=== PATIENT | female | born 1985 | race Caucasian/White ===

== ENCOUNTER 2019-03-02 12:51 | Emergency (ER) | payer OTHER, SELFPAY ==
--- NOTE | 2019-03-02 14:13 | RAD ---
EXAM: Chest 2 views: HISTORY: Cough and congestion COMPARISON: 08/18/2012 FINDINGS: There is a normal-sized cardiomediastinal silhouette. There is no evidence of consolidation, mass, or pleural effusion. The bones are unremarkable. IMPRESSION: No evidence of acute cardiopulmonary disease
--- NOTE | 2019-03-08 05:59 | PQF ---
[facility] POST DISCHARGE CLINICAL DOCUMENTATION IMPROVEMENT CLARIFICATION FORM l Todays Date: 03/07/2019 l Patients Name Jazmyne Villalta l l Admit Date 03/02/2019 l Disch Date 03/02/2019 Cod Maciej vibha Email: [email or web address]: [phone] To be completed by Mechanical Manufacturing Engineer: Present Clinical Indicators - Signs / Symptoms Results and Location in Medical Record [ ] Documentation of: [ ] [ ] Documentation of: [ ] [ ] Documentation of: [ ] [ ] Documentation of: [ ] [ ] Risks [ ] [ ] [ ] Treatment [ ] BRONCHITIS QUERY FOR SPECIFICTY OF ACUTE OR CHRONIC BRONCHITIS [ ] [ ] To be completed by Physician: DR. Penny DO, [place] The documentation in this patients record requires clarification to ensure coding compliance and accuracy. Check the appropriate box and include in your discharge summary. [ ] [ ] [ ] [ ] Please check this box if this does not apply to this patient [ ] Unable to determine [ ] Other diagnosis: Review the following information and exercise your independent professional judgment in responding to the clarification. Based upon the clinical findings, risk factors, and treatment, please clarify if you are treating one of the above probable or suspected diagnoses. Physician Signature: Date Time MTDD
== END 2019-03-02 14:55 | disposition home or self-care (01) ==
LOC: ERS 12:51
DX: J20.9 Acute bronchitis, unspecified (principal); F17.210 Nicotine dependence, cigarettes, uncomplicated
CPT/HCPCS: 71046

== ENCOUNTER 2019-06-06 23:47 | Emergency (ER) | payer SELFPAY | END 2019-06-07 00:39 | disposition left against medical advice (07) | LOC: ERS 23:47 | DX: Z53.21 Procedure and treatment not carried out due to patient leaving prior to being seen by health care provider (principal) ==

== ENCOUNTER 2019-08-14 23:49 | Emergency (ER) | payer SELFPAY | END 2019-08-15 00:53 | disposition home or self-care (01) | LOC: ERS 23:49 | DX: K04.7 Periapical abscess without sinus (principal); K03.81 Cracked tooth; K02.9 Dental caries, unspecified; F31.9 Bipolar disorder, unspecified; F20.9 Schizophrenia, unspecified; F41.9 Anxiety disorder, unspecified; F17.210 Nicotine dependence, cigarettes, uncomplicated | CPT/HCPCS: 99282 ==

== ENCOUNTER 2019-09-22 15:04 | Emergency (ER) | payer SELFPAY ==
[2019-09-22 16:08] LABS: Bilirubin 1+ (Negative); Blood, Urine Negative (Negative); Clarity Clear (Clear); Glucose, Urine (Dipstick) Normal (Negative); Leukocyte 250 Leu/uL (Negative); Nitrite 1+ (Negative); Protein, Urine (Dipstick) Negative (Neg-Trace); RBC/HPF 0-3 HPF (0-3); Squamous Epithelial 0-3 HPF (0-3); Urobilinogen Normal mg/dL (Less than 2)
[2019-09-22 16:10] LABS: Bacteria/HPF 2+ HPF (None Seen)
[2019-09-22] MEDS ORDERED: Cephalexin 250 MG CAP ONE (16:24)
== END 2019-09-22 16:30 | disposition home or self-care (01) ==
LOC: ERS 15:04
DX: N39.0 Urinary tract infection, site not specified (principal); F31.9 Bipolar disorder, unspecified; F20.9 Schizophrenia, unspecified; F17.210 Nicotine dependence, cigarettes, uncomplicated
CPT/HCPCS: 81003; 81015; 87077; 87086; 87186; 99283

== ENCOUNTER 2020-04-18 18:49 | Emergency (ER) | payer SELFPAY | END 2020-04-18 19:46 | disposition home or self-care (01) | LOC: ERS 18:49 | DX: K02.9 Dental caries, unspecified (principal); F17.210 Nicotine dependence, cigarettes, uncomplicated | CPT/HCPCS: 99282 ==